=== PATIENT | female | born 1950 | race Caucasian/White ===

== ENCOUNTER 2024-05-14 13:47 | Emergency (ER) | payer MEDICARE, BC, SELFPAY ==
[2024-05-14 13:49] VITALS: BP 153/84; PULSE 88; RESP 15; TEMP 36.2; O2SAT 100
[2024-05-14 13:52] VITALS: BP 152/89; PULSE 84; RESP 16; TEMP 36.6; O2SAT 99
[2024-05-14] MEDS: Ondansetron ODT 4 MG Tablet PO (14:57)
[2024-05-14 15:00] VITALS: BMI 25.2
--- NOTE | 2024-05-14 15:33 | EX.ED.DYSGE1 ---
HPI History of Present Illness Chief Complaint: Nausea/Vomiting Narrative Narrative: Patient is a 73-year-old female with past medical history hypertension, IBS who presented to the emergency department with a chief complaint of nausea vomiting and not feeling well. Patient states that she had her knee replaced on Thursday and states that things been going well for her. States that she has had nausea vomiting recently she states that she does not have a bowel movement until recently. Patient states that she was on narcotic medication for pain control. Patient states that they called the on-call surgeon at [facility] and they state that it seemed like they were bothering that surgeon and therefore they called the primary care physician who referred them here to be evaluated. Patient states that she was not given a Zofran at home. States that she has chills and whole body aches and not feeling well overall. States that she has not been around anybody sick that she is aware of. Patient denies any abdominal pain. PFSH PFS Medical History Hypertension Home Medications ?Medication ?Instructions ?Recorded ?Last Taken ?Type ondansetron 4 mg disintegrating 4 mg PO Q6H PRN nausea and 05/14/24 Unknown Rx tablet vomiting #20 tabs Allergy/AdvReac Type Severity Reaction Status Date / Time Penicillins Allergy Intermediate RASH Verified 05/14/24 13:49 shellfish derived Allergy Intermediate Rash Verified 05/14/24 13:49 Sulfa (Sulfonamide Allergy Intermediate RASH Verified 05/14/24 13:49 Antibiotics) Social History Smoking Status: Never smoker ROS ROS ED ROS Narrative Constitutional: Complains of chills, and diffuse bodyaches as noted above denies fevers, lightness, dizziness Eyes: Denies change in vision double vision blurry Cardiovascular: Denies chest pain palpitation Respiratory: Ends denies coughing wheezing shortness of breath Abdomen: Complains of nausea vomiting as noted above denies any diarrhea or abdominal pain : Denies any painful urination, hematuria and polyuria Neurological: Denies numbness, weakness, tingling Musculoskeletal: Denies back pain Skin: Denies rashes or lesions EXAM Physical Exam Narrative Exam Narrative: General: Patient lying in bed rest comfortably did not appear to be acute distress Head: Atraumatic, normocephalic Eyes: PERRL bilateral, EOMI bilateral, no conjunctival injection noted Neck: Soft, supple, trachea midline Cardiovascular: Regular rate and rhythm no murmurs gallops rubs no Respiratory: Clear to auscultation bilaterally no rales rhonchi or wheezes noted Abdomen: Soft, nondistended, no tenderness palpation, bowel sounds present x 4 Extremities: Patient moving all extremities, radial pulses +2/4 in the bilateral upper extremity Neurological: Patient follow commands knew that she was at [facility] years 2023 sensation grossly intact Skin: Patient surgical site is appears to be well-healing no active drainage on her right knee Const Vital Signs: 05/14/24 13:49 05/14/24 13:52 05/14/24 15:47 Temperature 97.1 F L 97.8 F Temperature Source Temporal Oral Pulse Rate 88 84 89 Respiratory Rate 15 16 16 Blood Pressure 153/84 H 152/89 H 127/66 H Blood Pressure Mean 107 110 86 Pulse Ox 100 99 99 Oxygen Delivery Method Room Air Room Air MDM MDM MDM Narrative Medical decision making narrative: Patient is a 73-year-old female who presented to the emergency department with a chief complaint of nausea vomiting not feeling well. Patient will be given Zofran and then have a COVID flu and RSV test performed. She will be reevaluated after this. Patient tested negative for COVID flu and RSV. On reevaluation the patient she feels much improved and would like to go home at this point time. Repeat abdominal exam was performed and her abdomen is completely benign. She tolerated oral intake here. Patient will be given prescription for Zofran sent to her pharmacy. She was advised to start with a bland diet and advance as tolerated. She is encouraged return with worsening symptoms or other concerns. All question concerns answered she was discharged home in stable condition. Discharge Plan Triage Chief Complaint: Nausea/Vomiting ED Provider: Alan Gonzalez Dx/Rx/DC Orders Clinical Impression: Nausea & vomiting Prescriptions: New ondansetron 4 mg tablet,disintegrating 4 mg PO Q6H PRN (Reason: nausea and vomiting) Qty: 20 0RF Primary Care Provider: Karson Kelly Referrals: Karson Kelly MD [Primary Care Provider] - Activity Restrictions/Additional Instructions: Follow with your primary care physician in the outpatient setting. Use Zofran that was sent to your pharmacy as prescribed. Return with worsening symptoms or other concerns. Start with a bland diet and advance as tolerated Print Language: [place]an Disposition Disposition: Home, Self Care
[2024-05-14 15:47] VITALS: BP 127/66; PULSE 89; RESP 16; O2SAT 99
[2024-05-14 16:24] VITALS: BP 139/68; PULSE 87; RESP 16; O2SAT 99
== END 2024-05-14 16:29 | disposition home or self-care (01) ==
PROVIDERS: Emergency Provider Emergency Medicine; PCP Family Medicine; Visit Provider Emergency Medicine
DX: R11.2 Nausea with vomiting, unspecified (principal)
CPT/HCPCS: 87631; 99282